=== PATIENT | female | born 1960 | race Hispanic/Latino ===

== ENCOUNTER 2018-11-17 12:09 | Emergency (ER) | payer OTHER ==
[2018-11-17] MEDS ORDERED: NARCAN 0.4 MG/1 ML IV ONE (12:22)
--- NOTE | 2018-11-17 12:30 | Emergency Department Report ---
History of Present Illness - General Chief Complaint: Overdose Stated Complaint: AMS Time Seen by Provider: 11/17/18 12:21 Source: EMS Mode of arrival: Stretcher Limitations: Altered Mental Status - History of Present Illness Initial Comments: 58 year old female with a past medical history of pseudoseizures presents from [facility] with alteration in mental status and possible overdose. Patient apparently was seen there yesterday and received Valium prescription for pseudoseizures. They are unsure if she filled the pr escription or took the medication. 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 Patient actually went to the [facility] with her luggage in bags prior to alteration in mental status. Patient is lethargic upon arrival it we are unable to obtain any history of present illness. She received Narcan 2 mg prior to arrival without any change. - Related Data Home Medications Medication Instructions Recorded Confirmed Last Taken No Known Home Medications [No 11/17/18 11/17/18 Unknown Reported Home Medications] Allergies Allergy/AdvReac Type Severity Reaction Status Date / Time Unable to Assess Allergy Verified 11/17/18 13:11 ED Review of Systems ROS: Stated complaint: AMS Other details as noted in HPI Comment: Unobtainable due to pts medical conditions ED Past Medical Hx - Past Medical History Previous Medical History?: Yes Hx Seizures: Yes (pseudo) Hx Psychiatric Treatment: Yes (substance abuse, bipolar?) Additional medical history: sarcoidosis. fibromyalgia. anemia - Social History Smoking Status: Unknown if ever smoked Substance Use Type: Other - Medications Home Medications: Home Medications Medication Instructions Recorded Confirmed Last Taken Type No Known Home Medications [No 11/17/18 11/17/18 Unknown History Reported Home Medications] ED Physical Exam - General Limitations: Altered Mental Status - Other Other exam information: General: No limitations, patient is alert in no acute distress Head exam: Atraumatic, normocephalic Eyes exam: Normal appearance, pupils equal reactive to light, extraocular move ments intact. Patient diverting her eyes upward when lids are open passively. ENT: Moist mucous membrane, positive gag Neck exam: Normal inspection, supple Respiratory exam: Clear to auscultation bilateral, no wheezes, rales, crackles Cardiovascular: Normal rate and rhythm, normal heart sounds Abdomen: Soft, nondistended, and nontender, with normal bowel sounds, no rebound, or guarding Extremity: Full range of motion normal inspection no deformity Back: Normal Inspection, full range of motion, no tenderness Neurologic: Lethargic, minimal withdrawal to pain, positive spontaneous movement Psychiatric: Unresponsive Skin: Warm, dry, intact. ED Course Vital Signs 11/17/18 11/17/18 11/17/18 12:11 12:14 12:16 Temperature 98.1 F Pulse Rate 79 75 Respiratory 20 19 Rate Blood Pressure 121/65 O2 Sat by Pulse 98 99 99 Oximetry 11/17/18 11/17/18 11/17/18 12:18 12:30 12:45 Temperature Pulse Rate 79 74 Respiratory 20 13 16 Rate Blood Pressure 121/65 114/68 O2 Sat by Pulse 99 98 Oximetry 11/17/18 11/17/18 11/17/18 13:07 13:15 13:30 Temperature Pulse Rate 76 70 Respiratory 22 18 Rate Blood Pressure 114/68 115/61 107/56 O2 Sat by Pulse 99 97 Oximetry 11/17/18 11/17/18 11/17/18 13:45 14:00 14:15 Temperature Pulse Rate 64 88 Respiratory 21 18 Rate Blood Pressure 103/52 103/52 113/77 O2 Sat by Pulse Oximetry - Reevaluation(s) Reevaluation #1: 11/17/18 15:04 When patient woke up in the ER she states that she was on Medicare her Valium filled and she went back to [facility] in an attempt to get Fioricet prescription. Patient has been in hospice in the past for eating d isorder/malnutrition as well as chronic pain. Pt claims to be withdrawing from benzo although last dose was yesterday. ED Medical Decision Making - Lab Data Result diagrams: 11/17/18 12:32 11/17/18 12:32 Lab Results 11/17/18 11/17/18 11/17/18 Range/Units 12:32 12:32 12:32 WBC 5.4 (4.5-11.0) K/mm3 RBC 4.40 (3.65-5.03) M/mm3 Hgb 12.7 (10.1-14.3) gm/dl Hct 38.5 (30.3-42.9) % MCV 87 (79-97) fl MCH 29 (28-32) pg MCHC 33 (30-34) % RDW 14.1 (13.2-15.2) % Plt Count 494 H (140-440) K/mm3 Lymph % (Auto) 18.2 (13.4-35.0) % [place] % (Auto) 7.9 H (0.0-7.3) % Eos % (Auto) 0.1 (0.0-4.3) % Baso % (Auto) 0.8 (0.0-1.8) % Lymph # 1.0 L (1.2-5.4) K/mm3 [place] # 0.4 (0.0-0.8) K/mm3 Eos # 0.0 (0.0-0.4) K/mm3 Baso # 0.0 (0.0-0.1) K/mm3 Seg Neutrophils % 73.0 H (40.0-70.0) % Seg Neutrophils # 4.0 (1.8-7.7) K/mm3 Sodium 144 (137-145) mmol/L Potassium 3.3 L (3.6-5.0) mmol/L Chloride 99.9 (98-107) mmol/L Carbon Dioxide 27 (22-30) mmol/L Anion Gap 20 mmol/L BUN 4 L (7-17) mg/dL Creatinine 0.5 L (0.7-1.2) mg/dL Estimated GFR > 60 ml/min BUN/Creatinine Ratio 8 % Glucose 130 H (65-100) mg/dL Calcium 9.4 (8.4-10.2) mg/dL Total Bilirubin 0.30 (0.1-1.2) mg/dL AST 17 (5-40) units/L ALT 16 (7-56) units/L Alkaline Phosphatase 99 (35-129) units/L Total Creatine Kinase 102 (30-135) units/L CK-MB (CK-2) 2.3 (0.0-4.0) ng/mL CK-MB (CK-2) Rel Index 2.2 (0-4) Troponin T < 0.010 (0.00-0.029) ng/mL Total Protein 7.7 (6.3-8.2) g/dL Albumin 4.8 (3.9-5) g/dL Albumin/Globulin Ratio 1.7 % Urine Color (Yellow) Urine Turbidity (Clear) Urine pH (5.0-7.0) Ur Specific [place] (1.003-1.030) Urine Protein (Negative) mg/dL Urine Glucose (UA) (Negative) mg/dL Urine Ketones (Negative) mg/dL Urine Blood (Negative) Urine Nitrite (Negative) Urine Bilirubin (Negative) Urine Urobilinogen (<2.0) mg/dL Ur Leukocyte Esterase (Negative) Urine WBC (Auto) (0.0-6.0) /HPF Urine RBC (Auto) (0.0-6.0) /HPF Urine Mucus /HPF Salicylates < 0.3 L (2.8-20.0) mg/dL Urine Opiates Screen Urine Methadone Screen Acetaminophen (10.0-30.0) ug/mL Ur Barbiturates Screen Ur Phencyclidine Scrn Ur Amphetamines Screen U Benzodiazepines Scrn Urine Cocaine Screen U Marijuana (THC) Screen Drugs of Abuse Note Plasma/Serum Alcohol (0-0.07) % 11/17/18 11/17/18 11/17/18 Range/Units 12:32 12:32 12:49 WBC (4.5-11.0) K/mm3 RBC (3.65-5.03) M/mm3 Hgb (10.1-14.3) gm/dl Hct (30.3-42.9) % MCV (79-97) fl MCH (28-32) pg MCHC (30-34) % RDW (13.2-15.2) % Plt Count (140-440) K/mm3 Lymph % (Auto) (13.4-35.0) % [place] % (Auto) (0.0-7.3) % Eos % (Auto) (0.0-4.3) % Baso % (Auto) (0.0-1.8) % Lymph # (1.2-5.4) K/mm3 [place] # (0.0-0.8) K/mm3 Eos # (0.0-0.4) K/mm3 Baso # (0.0-0.1) K/mm3 Seg Neutrophils % (40.0-70.0) % Seg Neutrophils # (1.8-7.7) K/mm3 Sodium (137-145) mmol/L Potassium (3.6-5.0) mmol/L Chloride (98-107) mmol/L Carbon Dioxide (22-30) mmol/L Anion Gap mmol/L BUN (7-17) mg/dL Creatinine (0.7-1.2) mg/dL Estimated GFR ml/min BUN/Creatinine Ratio % Glucose (65-100) mg/dL Calcium (8.4-10.2) mg/dL Total Bilirubin (0.1-1.2) mg/dL AST (5-40) units/L ALT (7-56) units/L Alkaline Phosphatase (35-129) units/L Total Creatine Kinase (30-135) units/L CK-MB (CK-2) (0.0-4.0) ng/mL CK-MB (CK-2) Rel Index (0-4) Troponin T (0.00-0.029) ng/mL Total Protein (6.3-8.2) g/dL Albumin (3.9-5) g/dL Albumin/Globulin Ratio % Urine Color Yellow (Yellow) Urine Turbidity Clear (Clear) Urine pH 6.0 (5.0-7.0) Ur Specific [place] 1.011 (1.003-1.030) Urine Protein <15 mg/dl (Negative) mg/dL Urine Glucose (UA) Neg (Negative) mg/dL Urine Ketones Neg (Negative) mg/dL Urine Blood Neg (Negative) Urine Nitrite Neg (Negative) Urine Bilirubin Neg (Negative) Urine Urobilinogen < 2.0 (<2.0) mg/dL Ur Leukocyte Esterase Neg (Negative) Urine WBC (Auto) 2.0 (0.0-6.0) /HPF Urine RBC (Auto) 1.0 (0.0-6.0) /HPF Urine Mucus Few /HPF Salicylates (2.8-20.0) mg/dL Urine Opiates Screen Urine Methadone Screen Acetaminophen < 5.0 L (10.0-30.0) ug/mL Ur Barbiturates Screen Ur Phencyclidine Scrn Ur Amphetamines Screen U Benzodiazepines Scrn Urine Cocaine Screen U Marijuana (THC) Screen Drugs of Abuse Note Plasma/Serum Alcohol < 0.01 (0-0.07) % 11/17/18 Range/Units 12:49 WBC (4.5-11.0) K/mm3 RBC (3.65-5.03) M/mm3 Hgb (10.1-14.3) gm/dl Hct (30.3-42.9) % MCV (79-97) fl MCH (28-32) pg MCHC (30-34) % RDW (13.2-15.2) % Plt Count (140-440) K/mm3 Lymph % (Auto) (13.4-35.0) % [place] % (Auto) (0.0-7.3) % Eos % (Auto) (0.0-4.3) % Baso % (Auto) (0.0-1.8) % Lymph # (1.2-5.4) K/mm3 [place] # (0.0-0.8) K/mm3 Eos # (0.0-0.4) K/mm3 Baso # (0.0-0.1) K/mm3 Seg Neutrophils % (40.0-70.0) % Seg Neutrophils # (1.8-7.7) K/mm3 Sodium (137-145) mmol/L Potassium (3.6-5.0) mmol/L Chloride (98-107) mmol/L Carbon Dioxide (22-30) mmol/L Anion Gap mmol/L BUN (7-17) mg/dL Creatinine (0.7-1.2) mg/dL Estimated GFR ml/min BUN/Creatinine Ratio % Glucose (65-100) mg/dL Calcium (8.4-10.2) mg/dL Total Bilirubin (0.1-1.2) mg/dL AST (5-40) units/L ALT (7-56) units/L Alkaline Phosphatase (35-129) units/L Total Creatine Kinase (30-135) units/L CK-MB (CK-2) (0.0-4.0) ng/mL CK-MB (CK-2) Rel Index (0-4) Troponin T (0.00-0.029) ng/mL Total Protein (6.3-8.2) g/dL Albumin (3.9-5) g/dL Albumin/Globulin Ratio % Urine Color (Yellow) Urine Turbidity (Clear) Urine pH (5.0-7.0) Ur Specific [place] (1.003-1.030) Urine Protein (Negative) mg/dL Urine Glucose (UA) (Negative) mg/dL Urine Ketones (Negative) mg/dL Urine Blood (Negative) Urine Nitrite (Negative) Urine Bilirubin (Negative) Urine Urobilinogen (<2.0) mg/dL Ur Leukocyte Esterase (Negative) Urine WBC (Auto) (0.0-6.0) /HPF Urine RBC (Auto) (0.0-6.0) /HPF Urine Mucus /HPF Salicylates (2.8-20.0) mg/dL Urine Opiates Screen Presumptive negative Urine Methadone Screen Presumptive negative Acetaminophen (10.0-30.0) ug/mL Ur Barbiturates Screen Presumptive positive Ur Phencyclidine Scrn Presumptive negative Ur Amphetamines Screen Presumptive negative U Benzodiazepines Scrn Presumptive positive Urine Cocaine Screen Presumptive negative U Marijuana (THC) Screen Presumptive negative Drugs of Abuse Note Disclamer Plasma/Serum Alcohol (0-0.07) % - EKG Data -: EKG Interpreted by Nv EKG shows normal: sinus rhythm, axis (qrs 52), QRS complexes (qrsd 87), ST-T waves (no stemi/t) Rate: normal (82) - Radiology Data Radiology results: report reviewed PROCEDURE: CT HEAD/BRAIN WO CON TECHNIQUE: CT examination of the head without IV contrast HISTORY: Overdose COMPARISONS: None FINDINGS: No acute air-fluid level visualized in the included air-filled sinuses. Bone windows demonstrate no acute fracture. There is ventricular and sulcal prominence compatible with global cerebrocortical atrophy. The brain contains no mass, mass effect, hemorrhage, or acute infarct. There is no extra-axial intracranial bleed, brain bleed, or midline shift. IMPRESSION: No acute CVA, intracranial bleed, or brain mass ADDENDUM ADDENDUM: Chest single AP HISTORY: Acute mental status change No prior studies for comparison Cardiac and mediastinal contours are unremarkable. No focal pulmonary infiltrate identified. No pleural fluid collection seen. Pulmonary vasculature is unremarkable. IMPRESSION: No acute abnormality identified in the chest This document is electronically signed by Morro Jensen MD., November 17 2018 06:16:00 PM ET Addendum Transcribed By: [facility] Addendum Dictated By: KAREEN JENSEN MD Addendum Electronically Authenticated By: KAREEN JENSEN MD Addendum Signed Date/Time: 11/17/181817 DD/ TD/TT: 11/17/18 PROCEDURE: XR CHEST 1V AP TECHNIQUE: HISTORY: ams COMPARISONS: FINDINGS: IMPRESSION: . This document is electronically signed by Morro Jensen MD., November 17 2018 05:06:48 PM ET - Medical Decision Making After patient woke up she admitted to accident overdose on Valium. Mental health provider assessed patient determined that patient has acute psychosis and will be readmitted to [facility]. 1013 and transfer forms By mouth potassium given for mild hypokalemia - Differential Diagnosis overdose, psychosis, pseudoseizures Critical Care Time: No Critical care attestation.: If time is entered above; I have spent that time in minutes in the direct care of this critically ill patient, excluding procedure time. ED Disposition Clinical Impression: Benzodiazepine abuse, Accidental overdose, Psychosis, Medical clearance for psychiatric admission Disposition: DC/TX-65 PSY HOSP/PSY UNIT Is pt being admited?: No Condition: Stable Time of Disposition: 19:36 (to be transfered to [place])
[2018-11-17 12:43] LABS: Basophils % (Auto) 0.8 % (0.0-1.8); Eosinophils % (Auto) 0.1 % (0.0-4.3); Hematocrit 38.5 % (30.3-42.9); Hemoglobin 12.7 gm/dl (10.1-14.3); Lymphocytes % (Auto) 18.2 % (13.4-35.0); Mean Corpuscular HGB Conc 33 % (30-34); Mean Corpuscular Volume 87 fl (79-97); Monocytes # (Auto) 0.4 K/mm3 (0.0-0.8); Monocytes % (Auto) 7.9 % (0.0-7.3); Platelet Count 494 K/mm3 (140-440); Red Cell Distribution Width 14.1 % (13.2-15.2)
[2018-11-17] MEDS ORDERED: NARCAN 2 MG/2 ML ONE (12:58)
[2018-11-17 13:10] LABS: Creatine Kinase MB 2.3 ng/mL (0.0-4.0)
[2018-11-17 13:12] LABS: Alanine Aminotransferase 16 units/L (7-56); Albumin 4.8 g/dL (3.9-5); BUN/Creatinine Ratio 8; Blood Urea Nitrogen 4 mg/dL (7-17); Calcium 9.4 mg/dL (8.4-10.2); Hemolysis Index 4
[2018-11-17 13:24] LABS: Amphetamine Screen,Urine PRESUMPTIVE NEGATIVE; Cannabinoid Screen,Urine PRESUMPTIVE NEGATIVE; Cocaine Screen,Urine PRESUMPTIVE NEGATIVE; Methadone Screen,Urine PRESUMPTIVE NEGATIVE; Opiate Screen,Urine PRESUMPTIVE NEGATIVE
[2018-11-17 13:30] LABS: Bilirubin,Urine NEG (Negative); Blood,Urine NEG (Negative); Color,Urine Yellow (Yellow); Mucus,Urine FEW /HPF; Protein,Urine <15 mg/dL mg/dL (Negative); Urobilinogen,Urine < 2.0 mg/dL (<2.0)
[2018-11-17 13:39] LABS: Benzodiazepines Screen,Urine PRESUMPTIVE POSITIVE
--- NOTE | 2018-11-17 13:58 | Cat Scan Report ---
PROCEDURE: CT HEAD/BRAIN WO CON TECHNIQUE: CT examination of the head without IV contrast HISTORY: Overdose COMPARISONS: None FINDINGS: No acute air-fluid level visualized in the included air-filled sinuses. Bone windows demonstrate no acute fracture. There is ventricular and sulcal prominence compatible with global cerebrocortical atrophy. The brain contains no mass, mass effect, hemorrhage, or acute infarct. There is no extra-axial intracranial bleed, brain bleed, or midline shift. IMPRESSION: No acute CVA, intracranial bleed, or brain mass This document is electronically signed by Dmitry Jane MD., November 17 2018 01:56:26 PM ET
[2018-11-17] MEDS ORDERED: K-DUR PO ONE (14:04)
[2018-11-17] MEDS ORDERED: ALUM-MAG HYDROX-SIMETH 200-200-20MG/5ML PO ONE (15:22)
--- NOTE | 2018-11-17 17:08 | XRay Report ---
PROCEDURE: XR CHEST 1V AP TECHNIQUE: HISTORY: ams COMPARISONS: FINDINGS: IMPRESSION: . This document is electronically signed by Morro Hough MD., November 17 2018 05:06:48 PM ET
[2018-11-18] MEDS ORDERED: PEPCID PO ONE (16:43)
--- NOTE | 2018-11-19 09:10 | Consultation ---
History of Present Illness - Reason for Consult Consult date: 11/19/18 Reason for consult: Mental Health Evaluation Requesting physician: CA RODRIGUEZ - Chief Complaint Chief complaint: "I am scared" - History of Present Psychiatric Illness 58 year old white female who presented to the ER for AMS. Today the patient is somewhat disorganized during the assessment. She was asked several questions about her mental health, most of her answers were not logical. She was able to tell me that she didn't get her Valium prescription filled when asked. She denies overdosing on any medication. She was asked how did she get from [facility] to [facility] ER, she stated, "I don"t know." She stated that she may have came to the ER because she feels "scared." She stated that she still feel scared. Overall, the patient isn't a good historian at this time. No gestures of SI/HI's. Medications and Allergies Allergies Allergy/AdvReac Type Severity Reaction Status Date / Time Unable to Assess Allergy Verified 11/17/18 13:11 Home Medications Medication Instructions Recorded Confirmed Last Taken Type No Known Home Medications [No 11/17/18 11/17/18 Unknown History Reported Home Medications] Past psychiatric history - Past Medical History Past Medical History: other (Chronic Back Pain) Past Surgical History: No surgical history - past Psychiatric treatment and history psychiatric treatment history: Inpatient psy service at [facility] recently. Denies a fam psy hx. - Social History Social history: Lives alone Mental Status Exam - Vital signs Last Vital Signs Temp 98.3 F 11/19/18 07:00 Pulse 98 H 11/19/18 07:00 Resp 20 11/19/18 07:00 BP 156/87 11/19/18 07:00 Pulse Ox 100 11/19/18 07:00 - Exam Narrative exam: MSE: Appearance: calm, cooperative Behavior: regular eye contact Speech: regular rate and tone Mood: "okay" Affect: flat Thought Process: somewhat disorganized Thought Content: denies SI/HI's and VH's, paranoia Motor Activity: lying in bed Cognition: A/O x3 Insight: limited Judgment: variable Results Result Diagrams: 11/17/18 12:32 11/17/18 12:32 All other labs normal. Assessment and Plan Assessment and plan: Impression: Unspecified Mood DO with psy features. Today the patient is somewhat disorganized during the assessment. UDS is negative. The patient is positive for benzos and barbituates. QTc 468. Recommendation/Plan: Continue 1013 and gather collateral information. Start Seroquel 100 mg PO HS for mood/psychosis. Discussed possible metabolic side effects of Seroquel with the patient. Dispo: The patient was referred to inpatient psy services. Will staff with Dr Piotr Sosa.
--- NOTE | 2018-11-20 08:59 | Progress Note ---
Subjective - Reason for Consult Consult date: 11/20/18 Reason for consult: Pscyhciatry Follow-up - Chief Complaint Chief complaint: "it's not right" 58 year old white female who presented to the ER for AMS. Today the patient is still somewhat disorganized during the assessment. She continues to state that she's scared. Her answers to why she's scared isn't logical. The patient appears to be responding to some type of stimuli. She denies SI/HI's and VH's. No indications of side effects of her medication. Mental Status Exam - Vital signs Last Vital Signs Temp 98.1 F 11/20/18 08:04 Pulse 98 H 11/20/18 08:04 Resp 20 11/20/18 08:04 BP 112/66 11/20/18 08:04 Pulse Ox 97 11/20/18 08:04 - Exam Narrative exam: MSE: Appearance: calm, cooperative Behavior: regular eye contact Speech: regular rate and low tone Mood: preoccupied Affect: flat Thought Process: somewhat disorganized Thought Content: denies SI/HI's and VH's, paranoia Motor Activity: lying in bed Cognition: A/O x3 Insight: limited Judgment: variable Assessment and Plan Impression: Unspecified Mood DO with psy features. Today the patient is somewhat disorganized during the assessment. UDS is negative. The patient is positive for benzos and barbituates. QTc 468. Recommendation/Plan: Continue 1013 and gather collateral information. Continue Seroquel 100 mg PO HS for mood/psychosis. Discussed possible metabolic side effects of Seroquel with the patient. Dispo: The patient was referred to inpatient psy services. Will staff with Dr Piotr Sosa.
[2018-11-21 07:51] VITALS: BP 120/79
--- NOTE | 2018-11-21 10:29 | Progress Note ---
Subjective - Reason for Consult Consult date: 11/21/18 Reason for consult: Psychiatry Follow-up - Chief Complaint Chief complaint: "The patient is somewhat unresponsive" 58 year old white female who presented to the ER for AMS. Today the patient is somewhat unresponsive during the assessment. The ER staff was called for assistance. The patient's VS's were WNL. Mental Status Exam - Vital signs Last Vital Signs Temp 98.7 F 11/21/18 07:30 Pulse 98 H 11/21/18 07:30 Resp 20 11/21/18 07:30 BP 120/79 11/21/18 07:30 Pulse Ox 98 11/21/18 07:30 - Exam Narrative exam: Unable to complete the MSE because of the patient's conditions. Assessment and Plan Impression: Unspecified Mood DO with psy features. Today the patient is somewhat unresponsive during the assessment. Recommendation/Plan: Continue 1013 and Seroquel 100 mg PO HS for mood/psychosis. Discussed possible metabolic side effects of Seroquel with the patient. Dispo: The patient was referred to inpatient psy services. Staffed with Dr Herson Sosa.
--- NOTE | 2018-11-21 10:57 | Emergency Department Report ---
Blank Doc - Documentation Documentation: All to the room because the patient was unresponsive but had normal vital signs. Patient would not open her eyes to verbal or physical stimuli and initially had no gag reflex. At this time I was concerned that the patient might aspirate so NG tube was placed as well as a Og catheter was the patient responded to both including gagging with NG tube placement. NG tube was put to intermittent suction chest x-ray ordered and patient declined. Patient became completely eliezer rt at the NG tube placement. Patient has now been medically cleared again and awaiting psychiatric placement.
== END 2018-11-21 15:00 ==
LOC: EEVIPCON 12:09 → ED 12:09
DX: T42.4X1A Poisoning by benzodiazepines, accidental (unintentional), initial encounter (principal); F23 Brief psychotic disorder; M79.7 Fibromyalgia; Z86.2 Personal history of diseases of the blood and blood-forming organs and certain disorders involving the immune mechanism; Y92.89 Other specified places as the place of occurrence of the external cause
CPT/HCPCS: 36415; 70450; 71045; 80053; 80307; 81001; 82140; 82550; 82553; 82962; 84484; 85025; 93005; 93010; 96374; 99285; G0480; J2310; 80320